=== PATIENT | female | born 1960 | race African-American/Black ===

== ENCOUNTER 2017-08-04 09:59 | Emergency (ER) | payer SELFPAY ==
[2017-08-04] MEDS ORDERED: NORMAL SALINE 1000 ML 1,000 ML IV ONE (10:24)
--- NOTE | 2017-08-04 10:24 | ER Document Report ---
ED Medical Screen (RME) - General Chief Complaint: Headache >24 hrs old Stated Complaint: HEADACHE Time Seen by Provider: 08/04/17 10:20 Notes: Patient is a 56-year-old female presenting to the emergency department today complaining of a global headache onset 1 month ago. Patient states that her headache has worsened today stating that she cannot take it anymore further stating she feels like her head is about to explode. Patient also complains of blurry vision and left foot pain. Patient denies any recent fall or injury. Patient is not on any blood thinners. TRAVEL OUTSIDE OF THE [place] IN LAST 30 DAYS: No - Related Data Allergies/Adverse Reactions: Penicillins Allergy (Verified 08/04/17 10:00) Past Medical History - General Information source: Patient - Social History Chew tobacco use (# tins/day): No Frequency of alcohol use: None Drug Abuse: None Family history: Reviewed & Not Pertinent - Past Medical History Cardiac Medical History: Reports: Hx Hypertension - diet controlled Pulmonary Medical History: Reports: Hx Bronchitis Endocrine Medical History: Reports: Hx Diabetes Mellitus Type 2 - borderline Musculoskeltal Medical History: Reports Hx Musculoskeletal Deformity Past Surgical History: Reports: Hx Section - X1, Hx Orthopedic Surgery - neck - Immunizations Immunizations up to date: No Hx Diphtheria, Pertussis, Tetanus Vaccination: No - unk Physical Exam - Vital signs Vitals: Temp Pulse Resp BP Pulse Ox 100.6 F H 106 H 16 156/81 H 95 08/04/17 10:03 08/04/17 10:03 08/04/17 10:08/04/17 10:03 08/04/17 10:03 - Notes Notes: GENERAL: Alert, interacts well. No acute distress. HEAD: Normocephalic, atraumatic. EYES: Pupils equal, round, and reactive to light. Extraocular movements intact. NECK: Full range of motion. Supple. Trachea midline. EXTREMITIES: Moves all 4 extremities spontaneously. Chronic discoloration on the top of the left foot which is also tender to palpation. NEUROLOGICAL: Alert and oriented x3. Normal speech. PSYCH: Normal affect, normal mood. Course - Vital Signs Vital signs: Temp Pulse Resp BP Pulse Ox 100.6 F H 106 H 16 156/81 H 95 08/04/17 10:03 08/04/17 10:03 08/04/17 10:03 08/04/17 10:03 08/04/17 10:03 - Laboratory Result Diagrams: 08/04/17 10:45 08/04/17 10:45 Laboratory results interpreted by me: 08/04/17 08/04/17 10:45 10:45 RDW 14.8 H Glucose 133 H Doctor's Discharge - Discharge Referrals: SUSANA RIVERA MD [Primary Care Provider] - Follow up as needed Scribe Documentation - Scribe Written by Sandro:: Sandro Richey, 08/04/2017 10:30 acting as scribe for :: Elijah
[2017-08-04] MEDS ORDERED: PROCHLORPERAZINE EDISYLATE INJ 10 MG/2 ML VIAL IV ONE (10:27)
[2017-08-04] MEDS ORDERED: DIPHENHYDRAMINE HCL 50 MG/ML VIAL IV ONE (10:28)
--- NOTE | 2017-08-04 11:17 | RADIOLOGY REPORT (SQ) ---
EXAM DESCRIPTION: CT HEAD WITHOUT COMPLETED DATE/TIME: 08/04/2017 11:06 am REASON FOR STUDY: global headache one month COMPARISON: 08/15/2014, 08/08/2012 CT brain TECHNIQUE: Axial images acquired through the brain without intravenous contrast. Images reviewed wi th bone, brain and subdural windows. Images stored on PACS. All CT scanners at this facility use dose modulation, iterative reconstruction, and/or weight based d osing when appropriate to reduce radiation dose to as low as reasonably achievable (ALARA). [facility]: Dose Right [facility]: CareDose [facility]: Dose Right [facility]: Teradose 4D [facility]: Smart [employer] RADIATION DOSE: CT Rad equipment meets quality standard of care and radiation dose reduction techniq ues were employed. CTDIvol: 64.6 mGy. DLP: 1034 mGy-cm. mGy. LIMITATIONS: None. FINDINGS: VENTRICLES: Normal size and contour. CEREBRUM: No masses. No hemorrhage. No midline shift. No evidence for acute infarction. Normal gra y/white matter differentiation. No areas of low density in the white matter. CEREBELLUM: No masses. No hemorrhage. No alteration of density. No evidence for acute infarction. EXTRAAXIAL SPACES: No fluid collections. No masses. ORBITS AND GLOBE: No intra- or extraconal masses. Normal contour of globe without masses. CALVARIUM: No fracture. PARANASAL SINUSES: No fluid or mucosal thickening. SOFT TISSUES: No mass or hematoma. OTHER: No other significant finding. IMPRESSION: NORMAL BRAIN CT WITHOUT CONTRAST. EVIDENCE OF ACUTE STROKE: NO. COMMENT: Quality ID # [id number]: Final reports with documentation of one or more dose reduction techniques (e.g., Automated exposure control, adjustment of the mA and/or kV according to patient size, use of iterative reconstruction technique) TECHNICAL DOCUMENTATION: JOB ID: [id number] [employer]- All Rights Reserved
[2017-08-04 11:19] LABS: ABSOLUTE LYMPHOCYTES (AUTO) 1.1 10^3/uL (0.5-4.7); ABSOLUTE MONOCYTES (AUTO) 0.6 10^3/uL (0.1-1.4); ABSOLUTE NEUT (AUTO) 6.1 10^3/uL (1.7-8.2); BASOPHILS % (AUTO) 0.3 % (0-2); EOSINOPHILS % (AUTO) 0.4 % (0-6); HEMATOCRIT 40.2 % (36.0-47.0); HEMOGLOBIN 13.6 g/dL (12.0-15.5); LYMPHOCYTES % (AUTO) 13.6 % (13-45); MEAN CORPUSCULAR HEMOGLOBIN 28.3 pg (27.0-33.4); MEAN CORPUSCULAR HGB CONC 33.8 g/dL (32.0-36.0); MEAN CORPUSCULAR VOLUME 84 fl (80-97); MONOCYTES % (AUTO) 7.8 % (3-13); PLATELET COUNT 284 10^3/uL (150-450); RED CELL DISTRIBUTION WIDTH 14.8 % (11.5-14.0); SEGMENTED NEUTROPHILS % (AUTO) 77.9 % (42-78); TOTAL CELLS COUNTED % (AUTO) 100 %; WHITE BLOOD COUNT 7.8 10^3/uL (4.0-10.5)
[2017-08-04 11:25] LABS: BLOOD UREA NITROGEN 9 mg/dL (7-20); GLUCOSE 133 mg/dL (75-110)
--- NOTE | 2017-08-04 11:25 | RADIOLOGY REPORT (SQ) ---
EXAM DESCRIPTION: FOOT LEFT COMPLETE COMPLETED DATE/TIME: 08/04/2017 11:15 am REASON FOR STUDY: L foot TTP COMPARISON: None. NUMBER OF VIEWS: Three views. TECHNIQUE: AP, lateral and oblique without weight bearing radiographic images acquired of the left f oot. LIMITATIONS: None. FINDINGS: MINERALIZATION: Normal. BONES: No acute fracture or dislocation. No worrisome bone lesions. No significant osteophytes. JOINTS: No erosions. No brittny-articular osteopenia. No chondrocalcinosis. SOFT TISSUES: No swelling. No calcifications. OTHER: No other significant finding. IMPRESSION: NEGATIVE STUDY OF THE LEFT FOOT. . TECHNICAL DOCUMENTATION: JOB ID: [id number] [employer]- All Rights Reserved
[2017-08-04 11:26] LABS: ALANINE AMINOTRANSFERASE 24 U/L (9-52); ALBUMIN 4.5 g/dL (3.5-5.0); ALKALINE PHOSPHATASE 74 U/L (38-126); ANION GAP 11 (5-19); ASPARTATE AMINO TRANSFERASE 23 U/L (14-36); BILIRUBIN,DIRECT 0.1 mg/dL (0.0-0.4); BILIRUBIN,TOTAL 0.4 mg/dL (0.2-1.3); CARBON DIOXIDE 26 mmol/L (22-30); CHLORIDE 101 mmol/L (98-107); POTASSIUM 4.7 mmol/L (3.6-5.0); SODIUM 138.4 mmol/L (137-145); TOTAL PROTEIN 7.7 g/dL (6.3-8.2)
--- NOTE | 2017-08-04 12:08 | ER Document Report ---
ED General - General Chief Complaint: Headache >24 hrs old Stated Complaint: HEADACHE Time Seen by Provider: 08/04/17 10:20 Notes: Patient states that she has had a headache for 1 month. Came here for evaluation. Was seen at triage initially. Low-grade fever. Was given IV migraine treatment medications and sent to CT scan. Patient extremely somnolent. Complaining of headache and no other symptoms at this time peer TRAVEL OUTSIDE OF THE [place] IN LAST 30 DAYS: No - HPI Onset/Duration: Gradual, Constant Severity: Moderate Pain Level: 2 - Related Data Allergies/Adverse Reactions: Penicillins Allergy (Verified 08/04/17 10:00) Past Medical History - General Information source: Patient - Social History Smoking Status: Current Some Day Smoker Cigarette use (# per day): Yes Chew tobacco use (# tins/day): No Frequency of alcohol use: None Drug Abuse: None Lives with: Family Family History: Arthritis, CAD, DM, Hyperlipidemia, Hypertension, Malignancy Patient has suicidal ideation: No Patient has homicidal ideation: No - Past Medical History Cardiac Medical History: Reports: Hx Hypertension - diet controlled Pulmonary Medical History: Reports: Hx Bronchitis Endocrine Medical History: Reports: Hx Diabetes Mellitus Type 2 - borderline Renal/ Medical History: Denies: Hx Peritoneal Dialysis Musculoskeltal Medical History: Reports Hx Musculoskeletal Deformity Past Surgical History: Reports: Hx Section - X1, Hx Orthopedic Surgery - neck - Immunizations Immunizations up to date: No Hx Diphtheria, Pertussis, Tetanus Vaccination: No - unk Review of Systems - Review of Systems Constitutional: Chills, Fever, Weakness EENT: Blurred vision. denies: Double vision, Throat pain, Difficulty swallowing , Throat swelling Cardiovascular: denies: Chest pain, Palpitations, Heart racing Respiratory: denies: Cough, Hurts to breathe, Short of breath Gastrointestinal: denies: Abdominal pain, Diarrhea, Nausea Genitourinary: denies: Dysuria, Discharge, Urgency Musculoskeletal: denies: Back pain, Joint pain, Muscle pain, Muscle stiffness, Neck pain Skin: denies: Lesions, Lumps, Rash Hematologic/Lymphatic: denies: Anemia, Blood clots, Easy bleeding, Easy bruising Neurological/Psychological: Weakness, Headaches. denies: Paralysis, Seizure, Lost consciousness Physical Exam - Vital signs Vitals: Temp Pulse Resp BP Pulse Ox 100.6 F H 106 H 16 156/81 H 95 02/20/18 10:03 08/04/17 10:03 08/04/17 10:03 08/04/17 10:03 08/04/17 10:03 Interpretation: Tachycardic - General General appearance: Appears well, Lethargic In distress: None - HEENT Head: Normocephalic, Atraumatic Eyes: Normal Pupils: PERRL Neck: Normal. No: Brudzinski, Lymphadenopathy, Meningismus, Neck mass - Respiratory Respiratory status: No respiratory distress Chest status: Nontender Breath sounds: Normal Chest palpation: Normal - Cardiovascular Rhythm: Tachycardia Heart sounds: Normal auscultation Murmur: No - Abdominal Inspection: Normal Distension: No distension Bowel sounds: Normal Tenderness: Nontender Organomegaly: No organomegaly - Back Back: Normal, Nontender - Extremities General upper extremity: Normal inspection, Nontender, Normal color, Normal ROM , Normal temperature General lower extremity: Normal inspection, Nontender, Normal color, Normal ROM , Normal temperature, Normal weight bearing. No: Brook's sign - Neurological Neuro grossly intact: Yes Cognition: Normal Orientation: AAOx4 Abdirahman Coma Scale Eye Opening: Spontaneous Abdirahman Coma Scale Verbal: Oriented [place] Coma Scale Motor: Obeys Commands Abdirahman Coma Scale Total: 15 Speech: Normal Motor strength normal: LUE, RUE, LLE, RLE Sensory: Normal - Psychological Associated symptoms: Normal affect, Normal mood - Skin Skin Temperature: Warm Skin Moisture: Dry Skin Color: Normal Course - Re-evaluation Re-evalutation: 08/04/17 12:07 Unknown what patient's baseline exam is that she is quite sleepy now after receiving Compazine and Benadryl IV. Concern is that she had a fever and with altered mental status may need LP to rule out encephalitis or meningitis. Will order the coagulation studies as well as influenza test at this time. Will reassess. 08/04/17 13:16 Laboratory 08/04/17 08/04/17 08/04/17 10:45 10:45 11:46 WBC 7.8 RBC 4.80 Hgb 13.6 Hct 40.2 MCV 84 MCH 28.3 MCHC 33.8 RDW 14.8 H Plt Count 284 Seg Neutrophils % 77.9 Lymphocytes % 13.6 Monocytes % 7.8 Eosinophils % 0.4 Basophils % 0.3 Absolute Neutrophils 6.1 Absolute Lymphocytes 1.1 Absolute Monocytes 0.6 Absolute Eosinophils 0.0 Absolute Basophils 0.0 PT 13.5 INR 0.97 Sodium 138.4 Potassium 4.7 Chloride 101 Carbon Dioxide 26 Anion Gap 11 BUN 9 Creatinine 0.72 Est GFR ( Amer) > 60 Est GFR (Non-Af Amer) > 60 Glucose 133 H Lactic Acid Calcium 10.0 Total Bilirubin 0.4 Direct Bilirubin 0.1 Neonat Total Bilirubin Not Reportable Neonat Direct Bilirubin Not Reportable Neonat Indirect Bili Not Reportable AST 23 ALT 24 Alkaline Phosphatase 74 Total Protein 7.7 Albumin 4.5 08/04/17 11:46 WBC RBC Hgb Hct MCV MCH MCHC RDW Plt Count Seg Neutrophils % Lymphocytes % Monocytes % Eosinophils % Basophils % Absolute Neutrophils Absolute Lymphocytes Absolute Monocytes Absolute Eosinophils Absolute Basophils PT INR Sodium Potassium Chloride Carbon Dioxide Anion Gap BUN Creatinine Est GFR ( Amer) Est GFR (Non-Af Amer) Glucose Lactic Acid 1.4 Calcium Total Bilirubin Direct Bilirubin Neonat Total Bilirubin Neonat Direct Bilirubin Neonat Indirect Bili AST ALT Alkaline Phosphatase Total Protein Albumin Head CT 08/04/17 10:27 IMPRESSION: NORMAL BRAIN CT WITHOUT CONTRAST. EVIDENCE OF ACUTE STROKE: NO. Foot X-Ray 08/04/17 10:31 IMPRESSION: NEGATIVE STUDY OF THE LEFT FOOT. . Patient with altered mental status and low-grade fever. Still pending influenza. Would hate to do a spinal tap on patient if she had the flu however also related to miss meningitis or encephalitis. Flu swab was negative will proceed with spinal tap. I have informed the nurse that there has been delay in obtaining the flu swab and that this needs to be done immediately. Nurse is aware. Will attempt to collect at this time. 08/04/17 13:52 Patient is much more alert now at this time. Migraine treatment is worn off. Patient states that she has a cough. The cough makes her headache worse. Will add chest x-ray at this time. Patient does consent for LP. If testing is as mentioned above will proceed as mentioned above. 08/04/17 15:13 Lumbar puncture performed. Fluid was clear. Ordered Tylenol and Toradol. Patient temperature is increased to 102. Chest x-ray was unremarkable. 08/04/17 16:21 Likely this represents a viral syndrome. Labs are fairly unremarkable. Does have a mild headache fever. If LP results unremarkable will continue to treat patient with ibuprofen and Tylenol. 08/04/17 16:47 Patient's CSF analysis is unremarkable for acute infection. Likely this is a viral syndrome. Patient does have a fever and a cough. Starting on antibiotics. Symptoms have been present for off and on for 7 days. Patient feeling more comfortable at this time. Will start on Tamiflu and azithromycin at this time. 08/04/17 16:53 - Vital Signs Vital signs: Temp Pulse Resp BP Pulse Ox 102.9 F H 107 H 20 154/75 H 96 08/04/17 15:18 08/04/17 15:25 08/04/17 15:25 08/04/17 15:25 08/04/17 15:25 - Laboratory Result Diagrams: 08/04/17 10:45 08/04/17 10:45 Laboratory results interpreted by me: 08/04/17 08/04/17 08/04/17 10:45 10:45 14:58 RDW 14.8 H Glucose 133 H CSF Glucose 79 H Procedures - Lumbar Puncture Lumbar puncture Time completed: 15:08 Consent obtained: Yes Lumbar puncture pre-procedure: Sterile PPE donned, Betadine prep applied Patient position: Sitting Needle size: 22 Lumbar puncture location: l3 Anesthetic type: 1% Lidocaine mL's of anesthetic: 5 Amount/type of drainage: 12 ml clear drainage Number of attempts: 1 Complications: No Notes: 08/04/17 15:09 Opening pressure of 31 but sitting up Discharge - Discharge Clinical Impression: Viral syndrome Condition: Good Disposition: HOME, SELF-CARE Instructions: Acetaminophen, Fever ([facility]), Viral Syndrome ([facility]) Additional Instructions: If your symptoms get worse, headache gets worse, fever gets worse or any other symptoms gets worse please return immediately. I am starting you on a antibiotic as well as anti-flu medication at this time. There are known side effects with all medications. Take Tylenol or ibuprofen every 8 hours as needed for fever and pain. Please return to the emergency department or follow- up with your primary care doctor if symptoms are getting worse per Prescriptions: Azithromycin 250 mg PO DAILY 6 Days #6 tablet Ibuprofen [Motrin 800 mg Tablet] 800 mg PO Q8H PRN 10 Days #30 tab PRN Reason: Oseltamivir Phosphate [Tamiflu 75 mg Capsule] 75 mg PO NOW 5 Days #10 capsule Referrals: SUSANA RIVERA MD [Primary Care Provider] - 08/06/17
[2017-08-04 12:10] LABS: INTERNATIONAL RATION (INR) 0.97; PROTHROMBIN TIME 13.5 SEC (11.4-15.4)
[2017-08-04 13:48] LABS: A TYPE INFLUENZA AG NEGATIVE (NEGATIVE); B INFLUENZA AG NEGATIVE (NEGATIVE)
--- NOTE | 2017-08-04 14:15 | RADIOLOGY REPORT (SQ) ---
EXAM DESCRIPTION: CHEST PA/LAT COMPLETED DATE/TIME: 08/04/2017 2:07 pm REASON FOR STUDY: Cough, fever COMPARISON: Two-view chest 12/04/2015, 08/15/2014 EXAM PARAMETERS: NUMBER OF VIEWS: two views TECHNIQUE: Digital Frontal and Lateral radiographic views of the chest acquired. RADIATION DOSE: NA LIMITATIONS: none FINDINGS: LUNGS AND PLEURA: No opacities, masses or pneumothorax. No pleural effusion. MEDIASTINUM AND HILAR STRUCTURES: No masses or contour abnormalities. HEART AND VASCULAR STRUCTURES: Heart normal size. No evidence for failure. BONES: No acute findings. HARDWARE: None in the chest. OTHER: No other significant finding. IMPRESSION: NO SIGNIFICANT RADIOGRAPHIC FINDING IN THE CHEST. TECHNICAL DOCUMENTATION: JOB ID: [id number] [employer]- All Rights Reserved
[2017-08-04] MEDS ORDERED: LIDOCAINE 1% INJ-PF (10 MG/ML) 30 ML SDV INJ ONE (14:21)
[2017-08-04] MEDS ORDERED: ACETAMINOPHEN 325 MG TABLET PO ONE (15:04)
[2017-08-04] MEDS ORDERED: KETOROLAC TROMETHAMINE INJ/PF 30 MG/1 ML SDV IV ONE (15:04)
[2017-08-04 15:57] LABS: GLUCOSE,CSF 79 mg/dL (40-70); PROTEIN,CSF 29 mg/dL (12-60)
[2017-08-04 16:21] LABS: APPEARANCE ALL TUBES CLEAR; APPEARANCE TUBE 1 CLEAR; APPEARANCE TUBE 2 CLEAR; APPEARANCE TUBE 3 CLEAR; APPEARANCE TUBE 4 CLEAR; COLOR ALL TUBES COLORLESS; COLOR TUBE 1 COLORLESS; COLOR TUBE 2 COLORLESS; COLOR TUBE 3 COLORLESS; COLOR TUBE 4 COLORLESS; CSF TUBE NUMBER 1; VOLUME TUBE 1 1.5 CC
[2017-08-04 16:22] LABS: RED BLOOD CELL,CSF 5 /uL (0-10); VOLUME TUBE 2 1.5 CC
[2017-08-04 16:23] LABS: WHITE BLOOD CELL,CSF 3 /uL (0-5)
[2017-08-04 16:25] LABS: APPEARANCE ALL TUBES CLEAR; APPEARANCE TUBE 1 CLEAR; APPEARANCE TUBE 2 CLEAR; APPEARANCE TUBE 3 CLEAR; APPEARANCE TUBE 4 CLEAR; COLOR ALL TUBES COLORLESS; COLOR TUBE 1 COLORLESS; COLOR TUBE 2 COLORLESS; COLOR TUBE 3 COLORLESS; COLOR TUBE 4 COLORLESS; CSF TUBE NUMBER 4; VOLUME TUBE 1 1.5 CC; VOLUME TUBE 2 1.5 CC
[2017-08-04 16:26] LABS: RED BLOOD CELL,CSF 1 /uL (0-10); WHITE BLOOD CELL,CSF 1 /uL (0-5)
[2017-08-04] MEDS ORDERED: AZITHROMYCIN 250 MG TABLET PO ONE (16:47)
[2017-08-04] MEDS ORDERED: OSELTAMIVIR PHOSPHATE 75 MG CAPSULE PO ONE (16:53)
[2017-08-04 17:25] VITALS: BP 116/53
[2017-08-06 21:07] LABS: HSV I DNA Negative (Negative)
[2017-08-07 07:18] LABS: HSV II DNA Negative (Negative)
== END 2017-08-04 17:25 | disposition home or self-care (01) ==
LOC: ER 09:59
PROC: 009U3ZX Drainage of Spinal Canal, Percutaneous Approach, Diagnostic (ICD-10-PCS; principal; 2017-08-04)
DX: B34.9 Viral infection, unspecified (principal); R51 Headache; R50.9 Fever, unspecified; F17.210 Nicotine dependence, cigarettes, uncomplicated
CPT/HCPCS: 99284; 96361; 96374; 96375; 87529; 36415; 87040; 87070; 87205; 85025; 85610; 89050; 82945; 84157; 80053; 83605; 87804; 71046; 73630; 70450; 62270; J1200; J3490 ×2; J1885; J0780; J7030

== ENCOUNTER 2018-04-02 12:36 | Emergency (ER) | payer SELFPAY ==
--- NOTE | 2018-04-02 13:04 | ER Document Report ---
ED Medical Screen (RME) - General Chief Complaint: Headache >24 hrs old Stated Complaint: HEADACHE Time Seen by Provider: 04/02/18 13:02 Notes: 57 years old female presents today with right temporal headache associated with redness and pain in the right eye as well as blurring of vision. This is going on for the last 2 weeks. Has a history of high blood pressure but not been taking any medications. Denies any fever chills or other constitutional symptoms. Denies any focal weaknesses. Right parietotemporal region is extremely tender on palpation, right eye shows conjunctival erythema. Right eye vision is blurry. Extraocular muscles could not perform because any movement of the eye causing severe pain. TRAVEL OUTSIDE OF THE [place] IN LAST 30 DAYS: No - Related Data Allergies/Adverse Reactions: Penicillins Allergy (Verified 04/02/18 12:37) Past Medical History - Social History Family history: Reviewed & Not Pertinent - Past Medical History Cardiac Medical History: Reports: Hx Hypertension - diet controlled Pulmonary Medical History: Reports: Hx Bronchitis Endocrine Medical History: Reports: Hx Diabetes Mellitus Type 2 - borderline Renal/ Medical History: Denies: Hx Peritoneal Dialysis Musculoskeltal Medical History: Reports Hx Musculoskeletal Deformity Past Surgical History: Reports: Hx Section - X1, Hx Orthopedic Surgery - neck - Immunizations Immunizations up to date: No Hx Diphtheria, Pertussis, Tetanus Vaccination: No - unk Physical Exam - Vital signs Vitals: Temp Pulse Resp BP Pulse Ox 98.5 F 93 18 168/92 H 98 04/02/18 12:42 04/02/18 12:42 04/02/18 12:42 04/02/18 12:42 04/02/18 12:42 Course - Vital Signs Vital signs: Temp Pulse Resp BP Pulse Ox 98.5 F 93 18 168/92 H 98 04/02/18 12:42 04/02/18 12:42 04/02/18 12:42 04/02/18 12:42 04/02/18 12:42 Doctor's Discharge - Discharge Referrals: SUSANA RIVERA MD [Primary Care Provider] - Follow up as needed
[2018-04-02 13:24] LABS: ABSOLUTE BASOPHILS # (AUTO) 0.1 10^3/uL (0.0-0.2); ABSOLUTE EOSINOPHILS # (AUTO) 0.1 10^3/uL (0.0-0.6); ABSOLUTE LYMPHOCYTES (AUTO) 2.9 10^3/uL (0.5-4.7); ABSOLUTE MONOCYTES (AUTO) 0.4 10^3/uL (0.1-1.4); ABSOLUTE NEUT (AUTO) 4.8 10^3/uL (1.7-8.2); EOSINOPHILS % (AUTO) 0.9 % (0-6); HEMATOCRIT 38.9 % (36.0-47.0); HEMOGLOBIN 12.9 g/dL (12.0-15.5); LYMPHOCYTES % (AUTO) 35.6 % (13-45); MEAN CORPUSCULAR HEMOGLOBIN 27.8 pg (27.0-33.4); MEAN CORPUSCULAR HGB CONC 33.1 g/dL (32.0-36.0); MEAN CORPUSCULAR VOLUME 84 fl (80-97); MONOCYTES % (AUTO) 4.3 % (3-13); PLATELET COUNT 306 10^3/uL (150-450); RED BLOOD COUNT 4.63 10^6/uL (3.72-5.28); RED CELL DISTRIBUTION WIDTH 14.4 % (11.5-14.0); SEGMENTED NEUTROPHILS % (AUTO) 58.2 % (42-78); TOTAL CELLS COUNTED % (AUTO) 100 %; WHITE BLOOD COUNT 8.3 10^3/uL (4.0-10.5)
--- NOTE | 2018-04-02 13:27 | ER Document Report ---
ED Headache - General Chief Complaint: Headache >24 hrs old Stated Complaint: HEADACHE Time Seen by Provider: 04/02/18 13:02 Mode of Arrival: Ambulatory Information source: Patient Notes: 57-year-old smoker bandar kuhn female that does not have a PCP is been complaining of her right sided forehead headache level 1/5 that is been persistent for 4 weeks. It started as normal headache but there was associated dizziness. It progressed to the right muslim and now it is been in the right eye with blurred vision for 1 week. She woke up this morning and noticed that her right lid was sagging down too far, there was some mucus in her eye, and she felt like there was sand in her eye. That sensation is now gone. Headache is worse at night, when she does wake up in the middle the night she has a persistent headache, 4/5 now. She has had numbness of both of her legs and her right arm for over 6 months she does not think is related to this I. Past medical history of untreated hypertension, borderline diabetes, neck surgery for fractured disc, sarcoidosis. She has seen Dr. Little but she states she no longer has health insurance. No history of migraines. No history of glaucoma. no Chest pain or shortness of breath. No abdominal pain. No recent upper respiratory infection or sinus pain. TRAVEL OUTSIDE OF THE [place] IN LAST 30 DAYS: No - Related Data Allergies/Adverse Reactions: Penicillins Allergy (Verified 04/02/18 12:37) Past Medical History - General Information source: Patient - Social History Smoking Status: Current Every Day Smoker Family History: Arthritis, CAD, DM, Hyperlipidemia, Hypertension, Malignancy Patient has suicidal ideation: No Patient has homicidal ideation: No - Past Medical History Cardiac Medical History: Reports: Hx Hypertension - diet controlled Pulmonary Medical History: Reports: Hx Bronchitis Endocrine Medical History: Reports: Hx Diabetes Mellitus Type 2 - borderline Musculoskeletal Medical History: Reports Hx Musculoskeletal Deformity Past Surgical History: Reports: Hx Section - X1, Hx Orthopedic Surgery - neck - Immunizations Immunizations up to date: No Hx Diphtheria, Pertussis, Tetanus Vaccination: No - unk Review of Systems - Review of Systems Constitutional: No symptoms reported EENT: See HPI Cardiovascular: No symptoms reported Respiratory: No symptoms reported Gastrointestinal: No symptoms reported Genitourinary: No symptoms reported Female Genitourinary: No symptoms reported Musculoskeletal: No symptoms reported Skin: No symptoms reported Hematologic/Lymphatic: No symptoms reported Neurological/Psychological: See HPI Physical Exam - Vital signs Vitals: Temp Pulse Resp BP Pulse Ox 98.5 F 93 18 168/92 H 98 04/02/18 12:42 04/02/18 12:42 04/02/18 12:42 04/02/18 12:42 04/02/18 12:42 Interpretation: Hypertensive - General General appearance: Appears well, Alert Notes: Obese - HEENT Head: Normocephalic, Atraumatic Eyes: Normal Conjunctiva: Injected - Right, Other - no fb with eyelid flipped. No: Purulent discharge Cornea: Normal Extraocular movements intact: Yes - Intact Eyelashes: Other - upper right lid has some edema, not hot, but tender Pupils: PERRL Mucous membranes: Normal Neck: Supple - Respiratory Respiratory status: No respiratory distress Chest status: Nontender Breath sounds: Normal Chest palpation: Normal - Cardiovascular Rhythm: Regular Heart sounds: Normal auscultation Murmur: No - Abdominal Inspection: Normal Distension: No distension Bowel sounds: Normal Tenderness: Nontender Organomegaly: No organomegaly - Back Back: Normal, Nontender - Extremities General upper extremity: Normal inspection, Nontender, Normal color, Normal ROM , Normal temperature General lower extremity: Normal inspection, Nontender, Normal color, Normal ROM , Normal temperature, Normal weight bearing. No: Brook's sign - Neurological Neuro grossly intact: Yes Cognition: Normal Orientation: AAOx4 Peck Coma Scale Eye Opening: Spontaneous Abdirahman Coma Scale Verbal: Oriented Abdirahman Coma Scale Motor: Obeys Commands Abdirahman Coma Scale Total: 15 Speech: Normal Motor strength normal: LUE, RUE, LLE, RLE Sensory: Normal - Psychological Associated symptoms: Normal affect, Normal mood - Skin Skin Temperature: Warm Skin Moisture: Dry Skin Color: Normal Course - Re-evaluation Re-evalutation: 04/02/18 15:39 CT head without is negative per rad. nurses unable to get IV for the contrasted CT orbits 04/02/18 15:42 04/02/18 16:36 meds are reducing the headache. 04/02/18 16:[address] of the orbit shows proptosis of the right globe, no signs of orbital mass or soft tissue inflammation normal abnormal thickening or asymmetry of the extraocular muscles. No bony or normalities no other significant findings. I added a TSH to the patient's lab work that is already been done. The IOP of the right eye is elevated at 26.2, IOP of the left eye is 20.6 no fluorescein uptake. visual acuity is 20/30 right, 20/30 left. Headache down to 1/5 after the medication. 04/02/18 17:[address] londono- to consult opthamologist telephone messenger since we do not have one telephone messenger for [facility]. ESR 34 (mildly elevated) 04/02/18 17:39 called [facility] opthamology for consult. 04/02/18 17:[address] astrid stauffer opthamology [facility] asked to get MRI to rule out cavernous sinus thrombosis and carotid cavernous fistula, MRV/MRA brain per dr. palmer- which she says needs special sequencing., will call MRI, they are calling her back. 04/02/18 18:00 Dr. Palmer states that she is not sure of the MRV and MRI that we do here has the right image sequencing done to rule out those 2 diagnoses. I called [facility] radiology 04/02/18 18:35 Spoke with [facility] radiologist will call me back in 5 minutes he is to speak with the MRI techs to see if they have the image sequencing in order to find these 2 diagnoses. 04/02/18 18:41 dr salgado the radiologist called neuro superintendent division who states that to look for carotid cavernous fistula she would need angiography which dr. levy could do. The MRA/MRV would be the same at [facility] and [facility]. I am calling for hospitalist to admit with opthamology and nuero superintendent division consultation. 04/02/18 18:46 Patient's headache is coming back and she is hungry but I want to keep her n.p.o. in case there is intervention to be done I will order lactated Ringer's at 115-hour. 04/02/18 18:[address] moore is accepting the pt. to [facility] medical floor for dr. Hackett with opthamology and neurointerventionist consult. The pt is agreeable for transfer. They have beds available. 04/02/18 19:02 dr stauffer is OK with the pt getting the MRV/MRA at [facility] not [facility] and will consult on the pt. Care transferred to [place] MARIA at the bedside. 04/02/18 19:20 dr. moore called back and wants heparin bolus 7300 units, and 16.4 ml per hour of (25,000 units of heparin in 250 ml 1/2 ns) EMTALA has been completed. - Vital Signs Vital signs: Temp Pulse Resp BP Pulse Ox 98 F 79 16 149/91 H 97 04/02/18 19:00 04/02/18 19:00 04/02/18 19:00 04/02/18 19:00 04/02/18 19:00 - Laboratory Result Diagrams: 04/02/18 13:13 04/02/18 13:13 Laboratory results interpreted by me: 04/02/18 04/02/18 13:13 13:13 RDW 14.4 H ESR 34 H Glucose 178 H Discharge - Discharge Clinical Impression: Redness of right eye, elevated eye pressure right eye, right temporal headache , Elevated glucose Hypertension Qualifiers: Hypertension type: unspecified Qualified Code(s): I10 - Essential (primary) hypertension Disposition: [facility] Referrals: SUSANA RIVERA MD [Primary Care Provider] - Follow up as needed
[2018-04-02 13:59] LABS: CALCIUM 9.4 mg/dL (8.4-10.2); GLUCOSE 178 mg/dL (75-110)
[2018-04-02 14:00] LABS: ALANINE AMINOTRANSFERASE 33 U/L (9-52); ALKALINE PHOSPHATASE 86 U/L (38-126); ANION GAP 9 (5-19); ASPARTATE AMINO TRANSFERASE 23 U/L (14-36); BILIRUBIN,DIRECT 0.3 mg/dL (0.0-0.4); BILIRUBIN,TOTAL 0.5 mg/dL (0.2-1.3); BLOOD UREA NITROGEN 9 mg/dL (7-20); CARBON DIOXIDE 27 mmol/L (22-30); CHLORIDE 104 mmol/L (98-107); POTASSIUM 4.5 mmol/L (3.6-5.0); SODIUM 139.9 mmol/L (137-145); TOTAL PROTEIN 7.8 g/dL (6.3-8.2)
[2018-04-02 14:03] LABS: ERYTHROCYTE SEDIMENTATION RATE 34 mm/hr (0-30)
--- NOTE | 2018-04-02 14:45 | RADIOLOGY REPORT (SQ) ---
EXAM DESCRIPTION: CT HEAD WITHOUT COMPLETED DATE/TIME: 04/02/2018 2:31 pm REASON FOR STUDY: Headache/blurred vision on the right eye COMPARISON: 08/04/2017. TECHNIQUE: Axial images acquired through the brain without intravenous contrast. Images reviewed wi th bone, brain and subdural windows. Additional sagittal and coronal reconstructions were generated. Images stored on PACS. All CT scanners at this facility use dose modulation, iterative reconstruction, and/or weight based d osing when appropriate to reduce radiation dose to as low as reasonably achievable (ALARA). [facility]: Dose Right [facility]: CareDose [facility]: Dose Right [facility]: Teradose 4D [facility]: OraMetrix RADIATION DOSE: CT Rad equipment meets quality standard of care and radiation dose reduction techniq ues were employed. CTDIvol: 53.2 mGy. DLP: 1017 mGy-cm. mGy. LIMITATIONS: None. FINDINGS: VENTRICLES: Normal size and contour. CEREBRUM: No masses. No hemorrhage. No midline shift. No evidence for acute infarction. Normal gra y/white matter differentiation. No areas of low density in the white matter. CEREBELLUM: No masses. No hemorrhage. No alteration of density. No evidence for acute infarction. EXTRAAXIAL SPACES: No fluid collections. No masses. ORBITS AND GLOBE: No intra- or extraconal masses. Normal contour of globe without masses. CALVARIUM: No fracture. PARANASAL SINUSES: No fluid or mucosal thickening. SOFT TISSUES: No mass or hematoma. OTHER: No other significant finding. IMPRESSION: NORMAL BRAIN CT WITHOUT CONTRAST. EVIDENCE OF ACUTE STROKE: NO. COMMENT: Quality ID # [id number]: Final reports with documentation of one or more dose reduction techniques (e.g., Automated exposure control, adjustment of the mA and/or kV according to patient size, use of iterative reconstruction technique) TECHNICAL DOCUMENTATION: JOB ID: [id number] [employer] All Rights Reserved Reading location - IP/workstation name: [email or web address]
[2018-04-02] MEDS ORDERED: DIPHENHYDRAMINE HCL 50 MG/ML VIAL IV ONE (15:40)
[2018-04-02] MEDS ORDERED: METOCLOPRAMIDE HCL INJ/PF 10 MG/2 ML SDV IV ONE (15:40)
[2018-04-02] MEDS ORDERED: TETRACAINE HCL 0.5% OPH SOLN 0.6 ML DROPERETTE OD ONE (16:36)
[2018-04-02] MEDS ORDERED: TETRACAINE HCL 0.5% OPH SOLN 4 ML ONE (16:37)
--- NOTE | 2018-04-02 16:39 | RADIOLOGY REPORT (SQ) ---
EXAM DESCRIPTION: CT ORBIT/SELLA WITH COMPLETED DATE/TIME: 04/02/2018 4:20 pm REASON FOR STUDY: Headache/blurred vision on the right eye COMPARISON: None. TECHNIQUE: Post contrast images through the orbits windowed for bone and soft tissue. Additional co sd and sagittal reconstructed images reviewed. All images stored on PACS. All CT scanners at this facility use dose modulation, iterative reconstruction, and/or weight based d osing when appropriate to reduce radiation dose to as low as reasonably achievable (ALARA). [facility]: Dose Right [facility]: CareDose [facility]: Dose Right [facility]: Teradose 4D [facility]: Yasuu CONTRAST TYPE AND DOSE: contrast/concentration: Isovue 350.00 mg/ml; Total Contrast Delivered: 50.0 ml; Total Saline Delivered: 22.0 ml RENAL FUNCTION: BUN 9 creatinine 0.66. RADIATION DOSE: CT Rad equipment meets quality standard of care and radiation dose reduction techniq ues were employed. CTDIvol: 30.4 mGy. DLP: 357 mGy-cm. . LIMITATIONS: None. FINDINGS: FACIAL BONES: No fracture or bone lesion. ORBITS: Intact. No fracture. Symmetric intact globes and retroorbital soft tissues. There does deepa ear to be proptosis of the right globe. The orbital fat is clear with no abnormal density and no enh ancement. No abnormal thickening or asymmetry of the extraocular muscles. PARANASAL SINUSES: Clear. No significant mucosal thickening, mass or fluid. SOFT TISSUES: No mass or edema. No abnormal enhancement. No CT evidence of acute sinusitis. INFERIOR BRAIN: Limited view. No acute findings. OTHER: No other significant finding. IMPRESSION: SUSPECT PROPTOSIS OF THE RIGHT GLOBE. NO EVIDENCE OF ORBITAL MASS OR SOFT TISSUE INFLAM MATION. NO ABNORMAL THICKENING OR ASYMMETRY OF THE EXTRAOCULAR MUSCLES. NO BONY ABNORMALITIES. NO OTHER SIGNIFICANT FINDINGS. TECHNICAL DOCUMENTATION: JOB ID: [id number] Quality ID # [id number]: Final reports with documentation of one or more dose reduction techniques (e.g., Au tomated exposure control, adjustment of the mA and/or kV according to patient size, use of iterative reconstruction technique) 2010 [employer]- All Rights Reserved Reading location - IP/workstation name: [email or web address]
[2018-04-02] MEDS ORDERED: TETRACAINE HCL 0.5% OPH SOLN 4 ML OD ONE (16:46)
[2018-04-02] MEDS ORDERED: RINGERS SOLUTION,LACTATED 1,000 ML IV PRN (18:45)
[2018-04-02 19:04] VITALS: BP 149/91
[2018-04-02] MEDS ORDERED: HEPARIN SOD (PORCINE) 1,000 UNIT/ML 10 ML VIAL IV ONE (19:16)
[2018-04-02] MEDS ORDERED: HEPARIN SODIUM,PORCINE/D5W 250 ML IV PRN (19:16)
[2018-04-02] MEDS ORDERED: HEPARIN SODIUM,PORCINE/D5W 25,000 UNIT/250 ML RTUINJ IV PRN (19:19)
[2018-04-02 20:01] LABS: INTERNATIONAL RATION (INR) 0.98; PROTHROMBIN TIME 13.5 SEC (11.4-15.4)
[2018-04-02 20:02] LABS: PARTIAL THROMBOPLASTIN TIME 31.8 SEC (23.5-35.8)
== END 2018-04-03 01:31 | disposition short-term general hospital (02) ==
LOC: ER 12:36
DX: R51 Headache (principal); H40.051 Ocular hypertension, right eye; H02.841 Edema of right upper eyelid; H05.20 Unspecified exophthalmos; R42 Dizziness and giddiness; H57.89 Other specified disorders of eye and adnexa; H53.8 Other visual disturbances; R20.0 Anesthesia of skin; R73.9 Hyperglycemia, unspecified; I10 Essential (primary) hypertension; Z88.0 Allergy status to penicillin
CPT/HCPCS: 96376; 99285; 96361; 96375; 96365; 96366; 36415; 84443; 85025; 85652; 85610; 85730; 80053; 70450; 70481; J1644 ×2; J1200; J2765; J7120; J3490

== ENCOUNTER 2018-04-26 18:48 | Emergency (ER) | payer SELFPAY ==
[2018-04-26 20:31] LABS: ABSOLUTE BASOPHILS # (AUTO) 0.1 10^3/uL (0.0-0.2); ABSOLUTE EOSINOPHILS # (AUTO) 0.1 10^3/uL (0.0-0.6); ABSOLUTE LYMPHOCYTES (AUTO) 3.9 10^3/uL (0.5-4.7); ABSOLUTE MONOCYTES (AUTO) 0.5 10^3/uL (0.1-1.4); ABSOLUTE NEUT (AUTO) 5.6 10^3/uL (1.7-8.2); BASOPHILS % (AUTO) 0.6 % (0-2); EOSINOPHILS % (AUTO) 1.1 % (0-6); HEMATOCRIT 39.1 % (36.0-47.0); HEMOGLOBIN 13.3 g/dL (12.0-15.5); LYMPHOCYTES % (AUTO) 38.2 % (13-45); MEAN CORPUSCULAR HEMOGLOBIN 28.8 pg (27.0-33.4); MEAN CORPUSCULAR VOLUME 85 fl (80-97); MONOCYTES % (AUTO) 5.2 % (3-13); PLATELET COUNT 257 10^3/uL (150-450); RED BLOOD COUNT 4.62 10^6/uL (3.72-5.28); RED CELL DISTRIBUTION WIDTH 14.4 % (11.5-14.0); SEGMENTED NEUTROPHILS % (AUTO) 54.9 % (42-78); TOTAL CELLS COUNTED % (AUTO) 100 %; WHITE BLOOD COUNT 10.3 10^3/uL (4.0-10.5)
[2018-04-26 20:37] LABS: INTERNATIONAL RATION (INR) 2.18
[2018-04-26 20:42] LABS: PROTHROMBIN TIME 25.3 SEC (11.4-15.4)
[2018-04-26] MEDS ORDERED: MORPHINE SULFATE 10 MG/ML INJ IV ONE (20:42)
[2018-04-26] MEDS ORDERED: ONDANSETRON HCL INJ/PF 4 MG/2 ML SDV IV ONE (20:42)
[2018-04-26] MEDS ORDERED: NORMAL SALINE 500 ML IV ONE (20:42)
--- NOTE | 2018-04-26 20:42 | ER Document Report ---
ED General - General Chief Complaint: Abdominal Pain Stated Complaint: BACK/ABDOMINAL PAIN Time Seen by Provider: 04/26/18 19:49 Mode of Arrival: Ambulatory Information source: Patient, [facility] Records Notes: 57-year-old female with hypertension, diabetes, emphysema, recent diagnosis of clot behind the right eye presents with complaint of abdominal pain, right flank pain and hematuria that started today. Patient states that she awoke with generalized abdominal pain that she describes as cramping. She states that as the day progressed she began developing right flank pain that she describes as sharp, constant. Patient states that she noticed her urine to be darker today. She does describe some suprapubic pressure. Patient is concerned that she is bleeding internally since she was recently started on Xarelto for the clot. Patient denies any bright red blood per rectum. She does report dark stools over the last 3 days. She denies any history of kidney stones. She denies any fever, chills, nausea, vomiting, chest pain. TRAVEL OUTSIDE OF THE [place] IN LAST 30 DAYS: No - HPI Onset: This morning Onset/Duration: Gradual, Persistent Quality of pain: Cramping, Stabbing Severity: Moderate Associated symptoms: Other - Dizziness. denies: Chest pain, Headache, Nausea, Vomiting, Shortness of breath Exacerbated by: Denies Relieved by: Denies Similar symptoms previously: No Recently seen / treated by doctor: Yes - Related Data Allergies/Adverse Reactions: Penicillins Allergy (Verified 04/02/18 12:37) Past Medical History - General Information source: Patient, [facility] Records - Social History Smoking Status: Never Smoker Frequency of alcohol use: None Drug Abuse: None Lives with: Family Family History: Arthritis, CAD, DM, Hyperlipidemia, Hypertension, Malignancy Patient has suicidal ideation: No Patient has homicidal ideation: No - Past Medical History Cardiac Medical History: Reports: Hx Hypertension - diet controlled Pulmonary Medical History: Reports: Hx Bronchitis Endocrine Medical History: Reports: Hx Diabetes Mellitus Type 2 - borderline Renal/ Medical History: Denies: Hx Peritoneal Dialysis Musculoskeletal Medical History: Reports Hx Musculoskeletal Deformity Past Surgical History: Reports: Hx Section - X1, Hx Orthopedic Surgery - neck - Immunizations Immunizations up to date: No Hx Diphtheria, Pertussis, Tetanus Vaccination: No - unk Review of Systems - Review of Systems Notes: REVIEW OF SYSTEMS: CONSTITUTIONAL : Denies fever, chills, or sweats. Denies recent illness. Denies weight loss, recent hospitalizations. EENT: Denies visual changes, eye pain. Denies sore throat, oral lesions, difficulty swallowing. CARDIOVASCULAR: Denies chest pain. Denies palpitations. Denies lower extremity edema. RESPIRATORY: Denies cough. Denies shortness of breath, wheezing. GASTROINTESTINAL: Denies abdominal distention. Denies nausea, vomiting, or diarrhea. Denies blood in vomitus, stools, or per rectum. Denies tarry stools. Denies constipation. GENITOURINARY: Denies difficulty urinating, painful urination, frequency, or vaginal discharge. MUSCULOSKELETAL: Denies neck pain or stiffness. Denies joint pain or swelling. SKIN: Denies rash, lesions or sores. HEMATOLOGIC : Denies easy bruising or bleeding. LYMPHATIC: Denies swollen glands. NEUROLOGICAL: Denies confusion or altered mental status. Denies loss of consciousness. Denies lightheadedness. Denies headache. Denies weakness or paralysis. Denies problems difficulty with ambulation, slurred speech. Denies sensory loss, numbness, or tingling. Denies seizures. PSYCHIATRIC: Denies anxiety or stress. Denies depression, suicidal ideation, or homicidal ideation. Denies visual or auditory hallucinations. Physical Exam - Vital signs Vitals: Temp Pulse Resp BP Pulse Ox 98.6 F 87 16 158/86 H 98 04/26/18 19:04 04/26/18 19:04 04/26/18 19:04 04/26/18 19:04 04/26/18 19:04 - Notes Notes: PHYSICAL EXAMINATION: GENERAL: Well-appearing, well-nourished and in no acute distress. HEAD: Atraumatic, normocephalic. EYES: Pupils equal round and reactive to light, extraocular movements intact, conjunctiva are normal. ENT: Nares patent, oropharynx clear without exudates. Moist mucous membranes. NECK: Normal range of motion, supple without lymphadenopathy LUNGS: Breath sounds clear to auscultation bilaterally and equal. No wheezes rales or rhonchi. HEART: Regular rate and rhythm without murmurs ABDOMEN: mild generalized tenderness throughout. No guarding, no rebound. No masses appreciated. Right CVA tenderness. Female : Small external hemorrhoid. Stool brown. No active bleeding. Musculoskeletal: Normal range of motion, no pitting or edema. No cyanosis. NEUROLOGICAL: Cranial nerves grossly intact. Normal speech, normal gait. Normal sensory, motor exams PSYCH: Normal mood, normal affect. SKIN: Warm, Dry, normal turgor, no rashes or lesions noted. Course - Re-evaluation Re-evalutation: Laboratory 04/26/18 04/26/18 04/26/18 20:19 20:19 20:19 WBC 10.3 RBC 4.62 Hgb 13.3 Hct 39.1 MCV 85 MCH 28.8 MCHC 34.0 RDW 14.4 H Plt Count 257 Seg Neutrophils % 54.9 Lymphocytes % 38.2 Monocytes % 5.2 Eosinophils % 1.1 Basophils % 0.6 Absolute Neutrophils 5.6 Absolute Lymphocytes 3.9 Absolute Monocytes 0.5 Absolute Eosinophils 0.1 Absolute Basophils 0.1 PT 25.3 H INR 2.18 Sodium 142.7 Potassium 4.5 Chloride 101 Carbon Dioxide 29 Anion Gap 13 BUN 13 Creatinine 0.78 Est GFR ( Amer) > 60 Est GFR (Non-Af Amer) > 60 Glucose 109 Calcium 9.8 Total Bilirubin 0.3 Direct Bilirubin 0.3 Neonat Total Bilirubin Not Reportable Neonat Direct Bilirubin Not Reportable Neonat Indirect Bili Not Reportable AST 25 ALT 32 Alkaline Phosphatase 84 Total Protein 8.1 Albumin 4.4 Urine Color Urine Appearance Urine pH Ur Specific [place] Urine Protein Urine Glucose (UA) Urine Ketones Urine Blood Urine Nitrite Urine Bilirubin Urine Urobilinogen Ur Leukocyte Esterase Urine RBC (Auto) Squamous Epi Cells Auto Urine Mucus (Auto) Urine Yeast (Budding) Urine Ascorbic Acid Stool Occult Blood 04/26/18 04/26/18 20:26 20:44 WBC RBC Hgb Hct MCV MCH MCHC RDW Plt Count Seg Neutrophils % Lymphocytes % Monocytes % Eosinophils % Basophils % Absolute Neutrophils Absolute Lymphocytes Absolute Monocytes Absolute Eosinophils Absolute Basophils PT INR Sodium Potassium Chloride Carbon Dioxide Anion Gap BUN Creatinine Est GFR ( Amer) Est GFR (Non-Af Amer) Glucose Calcium Total Bilirubin Direct Bilirubin Neonat Total Bilirubin Neonat Direct Bilirubin Neonat Indirect Bili AST ALT Alkaline Phosphatase Total Protein Albumin Urine Color YELLOW Urine Appearance CLOUDY Urine pH 6.0 Ur Specific [place] 1.016 Urine Protein 100 H Urine Glucose (UA) NEGATIVE Urine Ketones NEGATIVE Urine Blood LARGE H Urine Nitrite NEGATIVE Urine Bilirubin NEGATIVE Urine Urobilinogen NEGATIVE Ur Leukocyte Esterase NEGATIVE Urine RBC (Auto) >182 Squamous Epi Cells Auto 2 Urine Mucus (Auto) FEW Urine Yeast (Budding) PRESENT Urine Ascorbic Acid NEGATIVE Stool Occult Blood NEGATIVE Abdomen/Pelvis CT 04/26/18 20:41 IMPRESSION: No definite acute intra-abdominal abnormality TECHNIQUE: Images stored on PACS. All CT scanners at this facility use dose modulation, iterative reconstruction, and/or weight based dosing when appropriate to reduce radiation dose to as low as reasonably achievable (ALARA). [facility]: Dose Right [facility]: CareDose [facility]: Dose Right [facility]: Teradose 4D [facility]: [employer] LIMITATIONS: None. FINDINGS: IMPRESSION: TECHNICAL DOCUMENTATION: Quality ID # 436: Final reports with documentation of one or more dose reduction techniques (e.g., Automated exposure control, adjustment of the mA and/or kV according to patient size, use of iterative reconstruction technique) 2010 [employer]- All Rights Reserved 57-year-old female presents with complaint of generalized abdominal pain, dizziness, right flank pain, nausea which all started this morning. Patient reports that she was recently admitted to [facility] where they found a clot behind her right eye. She states that she was started on Xarelto and discharged home. Patient is concerned that she is bleeding internally because of the Xarelto. She states that she is concerned that she has a blood in her urine. Vital signs reviewed upon arrival. Patient with low- grade temp of 100.6 which did increase to 102 but resolved prior to discharge. CBC, CMP are without leukocytosis or electrolyte abnormality. PT/INR within normal limits. Urinalysis shows a large amount of blood and greater than 182 WBCs but without evidence of infection. Upon review of prior urinalysis patient does have a history of hematuria but her RBCs are greater today than previous. Patient states that she was never informed that she had blood in her urine in the past. The increased and RBCs could be secondary to recent placement on Xarelto. Occult stool is negative for blood. CT of the abdomen and pelvis was obtained and without evidence of pancreatitis, cholecystitis, urolithiasis, appendicitis, bowel obstruction, perforation, abdominal aortic aneurysm. 04/26/18 22:45 Patient reevaluated and she does report improvement of her abdominal pain but is still complaining of vertiginous symptoms. Meclizine administered. 04/27/18 00:46 Patient reevaluated and she is sleeping peacefully. When awoke she states that she is feeling better. Her dizziness has resolved. She has had no episodes of vomiting during her ED course. It is possible that the patient's abdominal pain is viral and nature. No evidence of bacterial infection. I did explain to the patient that at this point although there is hematuria present and significant RBCs on microscopy that she should continue with the Xarelto at this time and contact the physician who is currently prescribing her the Xarelto. Patient was evaluated and treated as appropriate for the patient's presenting symptoms and complaint, with consideration of any critical or life threatening conditions that may be associated with their obtained history and exam as noted above. All results were discussed with patient. Patient provided the opportunity to ask questions, and express concerns. Patient was educated on treatments based on their presumed diagnosis as noted above. At this time we will discharge the patient with return precautions and follow-up recommendations. Verbal discharge instructions given a the bedside. Medication warnings reviewed. Patient is in agreement with this plan and has verbalized understanding of return precautions. After careful consideration I feel that that patient can be safely discharged from the emergency department, they were advised to followup with a primary care physician in 2-3 days. Dictation on this chart was performed using voice recognition software and may result in unintended grammatical, spelling, syntax or errors. 04/27/18 05:07 04/27/18 05:09 04/27/18 05:12 - Vital Signs Vital signs: Temp Pulse Resp BP Pulse Ox 99.2 F 83 16 142/91 H 98 04/27/18 00:46 04/27/18 00:46 04/27/18 00:46 04/27/18 00:46 04/27/18 00:46 - Laboratory Result Diagrams: 04/26/18 20:19 04/26/18 20:19 Laboratory results interpreted by me: 04/26/18 04/26/18 04/26/18 20:19 20:19 20:26 RDW 14.4 H PT 25.3 H Urine Protein 100 H Urine Blood LARGE H - Diagnostic Test Radiology reviewed: Image reviewed, Reports reviewed Discharge - Discharge Clinical Impression: Dizziness Abdominal pain Qualifiers: Abdominal location: generalized Qualified Code(s): R10.84 - Generalized abdominal pain Hypertension Qualifiers: Hypertension type: unspecified Qualified Code(s): I10 - Essential (primary) hypertension Hematuria Qualifiers: Hematuria type: unspecified type Qualified Code(s): R31.9 - Hematuria, unspecified Fever Qualifiers: Fever type: unspecified Qualified Code(s): R50.9 - Fever, unspecified Condition: Good Disposition: HOME, SELF-CARE Instructions: Abdominal Pain ([facility]), Flank Pain ([facility]), Hematuria ([facility]), Pain Medication Injection ([facility]), Vertigo ([facility]), Fever ([facility]) Additional Instructions: Your labs and imaging today were normal. Your urinalysis did show blood. After review of your previous urine samples obtained in the past this is not a new problem for you. Although Xarelto may make this worse at this time the benefit of stopping your Xarelto secondary to the clot that they found behind her eye last week outweighs the risks of continuation at this time. There is no evidence of blood in your stool. Please contact the doctor who prescribed the Xarelto to you and inform him that you were seen in the emergency department and have blood in your urine. Prescriptions: Meclizine HCl [Antivert 25 mg Tablet] 25 mg PO Q8H PRN #12 tablet PRN Reason: Dizziness Ondansetron [Zofran Odt 4 mg Tablet] 1 tab PO Q4H PRN #15 tab.rapdis PRN Reason: For Nausea/Vomiting Forms: Elevated Blood Pressure
[2018-04-26 20:47] LABS: ALANINE AMINOTRANSFERASE 32 U/L (9-52); ALBUMIN 4.4 g/dL (3.5-5.0); ALKALINE PHOSPHATASE 84 U/L (38-126); ANION GAP 13 (5-19); ASPARTATE AMINO TRANSFERASE 25 U/L (14-36); BILIRUBIN,DIRECT 0.3 mg/dL (0.0-0.4); BILIRUBIN,TOTAL 0.3 mg/dL (0.2-1.3); BLOOD UREA NITROGEN 13 mg/dL (7-20); CALCIUM 9.8 mg/dL (8.4-10.2); CARBON DIOXIDE 29 mmol/L (22-30); CHLORIDE 101 mmol/L (98-107); GLUCOSE 109 mg/dL (75-110); POTASSIUM 4.5 mmol/L (3.6-5.0); SODIUM 142.7 mmol/L (137-145); TOTAL PROTEIN 8.1 g/dL (6.3-8.2)
[2018-04-26 20:49] LABS: APPEARANCE,URINE CLOUDY; BILIRUBIN,URINE NEGATIVE (NEGATIVE); COLOR,URINE YELLOW; GLUCOSE, URINE NEGATIVE (NEGATIVE); KETONES,URINE NEGATIVE (NEGATIVE); LEUKOCYTE ESTERASE,URINE NEGATIVE (NEGATIVE); NITRITE,URINE NEGATIVE (NEGATIVE); PROTEIN,URINE 100 mg/dL (NEGATIVE); URINE SPECIFIC GRAVITY 1.016; UROBILINOGEN,URINE NEGATIVE mg/dL (<2.0)
--- NOTE | 2018-04-26 21:53 | RADIOLOGY REPORT (SQ) ---
EXAM DESCRIPTION: CT ABDOMEN PELVIS WITH IV CONTRAST COMPLETED DATE/TME: 04/26/2018 20:41 CLINICAL HISTORY: 57 years, Female, Right flank and right lower quadrant abdominal milo COMPARISON: EXAM DESCRIPTION: CLINICAL HISTORY: Right flank and right lower quadrant abdominal milo COMPARISON: None Available TECHNIQUE: Contiguous axial images of the abdomen and pelvis were obtained after the administration of intravenous contrast followed by reconstruction images.This exam was performed according to our departmental dose-optimization program, which includes automated exposure control, adjustment of the mA and/or kV according to patient size and/or use of iterative reconstruction technique. FINDINGS: Fat but no bowel extends through an anterior abdominal wall defect. There is slight prominence of the pancreatic duct. There is mild thickening of the wall of a few loops of small bowel in the left abdomen suggesting inflammation. Alternatively, this could be simply due to underdistention. There is no significant edema of the surrounding fat.. The liver, spleen, pancreas and kidneys are within normal limits. There is no hydronephrosis. The gallbladder is unremarkable. Adrenal glands are within normal limits. Aorta is normal in caliber and tapering. No significant free fluid. No free air. No bowel obstruction. There is no stranding of the mesenteric fat. The appendix appears normal. No evidence of periappendiceal inflammation. IMPRESSION: No definite acute intra-abdominal abnormality TECHNIQUE: Images stored on PACS. All CT scanners at this facility use dose modulation, iterative reconstruction, and/or weight based dosing when appropriate to reduce radiation dose to as low as reasonably achievable (ALARA). [facility]: Dose Right [facility]: CareDose [facility]: Dose Right [facility]: Teradose 4D [facility]: [employer] LIMITATIONS: None. FINDINGS: IMPRESSION: TECHNICAL DOCUMENTATION: Quality ID # 436: Final reports with documentation of one or more dose reduction techniques (e.g., Automated exposure control, adjustment of the mA and/or kV according to patient size, use of iterative reconstruction technique) 2010 [employer]- All Rights Reserved
[2018-04-26] MEDS ORDERED: MECLIZINE HCL 25 MG TABLET PO ONE (22:39)
[2018-04-27 00:57] VITALS: BP 142/91
== END 2018-04-27 01:06 | disposition home or self-care (01) ==
LOC: ER 18:48
DX: R42 Dizziness and giddiness (principal); R10.84 Generalized abdominal pain; R31.9 Hematuria, unspecified; R50.9 Fever, unspecified; I10 Essential (primary) hypertension; E11.9 Type 2 diabetes mellitus without complications; Z88.0 Allergy status to penicillin; Z79.02 Long term (current) use of antithrombotics/antiplatelets
CPT/HCPCS: 99284; 96361; 96374; 96375; 36415; 85025; 85610; 82272; 80053; 81001; 74177; J2270; J2405; J7040

== ENCOUNTER → 2019-12-02 | Outpatient (CLI) | payer BC ==
--- NOTE | 2019-12-02 12:10 | WOMENS IMAGING REPORT ---
EXAM DESCRIPTION: BILAT SCREENING MAMMO W/CAD IMAGES COMPLETED DATE/TIME: 12/02/2019 9:41 am REASON FOR STUDY: Z12.31 SCREENING MAMMO Z12.31 ENCNTR SCREEN MAMMOGRAM FOR MALIGNANT NEOPLASM OF B RE COMPARISON: 11/09/2013 and 10/24/2010 EXAM PARAMETERS: Standard craniocaudal and mediolateral oblique views of each breast recorded using digital acquisition. Read with the assistance of CAD. .[facility] - [employer] Version 9.2 LIMITATIONS: None. FINDINGS: No suspicious masses, suspicious calcifications or architectural distortion. No areas of c oncern. IMPRESSION: NEGATIVE MAMMOGRAM. BIRADS 1 BREAST DENSITY: b. There are scattered areas of fibroglandular density. BIRAD: ASSESSMENT: 1 NEGATIVE RECOMMENDATION: ROUTINE SCREENING COMMENT: The patient has been notified of the results by letter per MQSA requirements. Additional no tification policies are in place for contacting patient with suspicious or incomplete findings. Quality ID #225: The [employer] recommends an annual screening mammogram for women aged 40 years or over. This facility utilizes a reminder system to ensure that all patients receive reminder letters, and/or direct phone calls for appointments. This includes reminders for routine scr eening mammograms, diagnostic mammograms, or other Breast Imaging Interventions when appropriate. Th is patient will be placed in the appropriate reminder system. TECHNICAL DOCUMENTATION: FINDING NUMBER: (1) ASSESSMENT: (1) JOB ID: [id number] 2010 [employer]- All Rights Reserved Reading location - IP/workstation name: [email or web address]
== END ==
LOC: WI 09:00
PROVIDERS: ATTEND Internal Medicine
DX: Z12.31 Encounter for screening mammogram for malignant neoplasm of breast (principal)
CPT/HCPCS: 77067

== ENCOUNTER → 2020-02-23 | Outpatient (CLI) | payer BC ==
--- NOTE | 2020-02-23 14:18 | RADIOLOGY REPORT (SQ) ---
EXAM DESCRIPTION: ANKLE LEFT AP/LATERAL; FOOT LEFT 2 VIEWS IMAGES COMPLETED DATE/TIME: 02/23/2020 1:24 pm; 02/23/2020 1:25 pm REASON FOR STUDY: FALL (ON) (FROM) OTHER STAIRS AND STEPS, INITIAL ENCOUNTER W10.8XXA FALL (ON) (FR OM) OTHER STAIRS AND STEPS, INITIAL EN COMPARISON: None. NUMBER OF VIEWS: Five views. TECHNIQUE: AP, lateral and oblique radiographic images acquired of the left ankle and left foot. LIMITATIONS: None. FINDINGS: MINERALIZATION: Normal. BONES: No acute fracture or dislocation. No worrisome bone lesions. JOINTS: No effusions. SOFT TISSUES: Lateral swelling. No foreign body. OTHER: No other significant finding. IMPRESSION: No fracture. TECHNICAL DOCUMENTATION: JOB ID: [id number] 2010 [employer]- All Rights Reserved Reading location - IP/workstation name: [email or web address]
--- NOTE | 2020-02-23 14:18 | RADIOLOGY REPORT (SQ) ---
EXAM DESCRIPTION: ANKLE LEFT AP/LATERAL; FOOT LEFT 2 VIEWS IMAGES COMPLETED DATE/TIME: 02/23/2020 1:24 pm; 02/23/2020 1:25 pm REASON FOR STUDY: FALL (ON) (FROM) OTHER STAIRS AND STEPS, INITIAL ENCOUNTER W10.8XXA FALL (ON) (FR OM) OTHER STAIRS AND STEPS, INITIAL EN COMPARISON: None. NUMBER OF VIEWS: Five views. TECHNIQUE: AP, lateral and oblique radiographic images acquired of the left ankle and left foot. LIMITATIONS: None. FINDINGS: MINERALIZATION: Normal. BONES: No acute fracture or dislocation. No worrisome bone lesions. JOINTS: No effusions. SOFT TISSUES: Lateral swelling. No foreign body. OTHER: No other significant finding. IMPRESSION: No fracture. TECHNICAL DOCUMENTATION: JOB ID: [id number] 2010 [employer] All Rights Reserved Reading location - IP/workstation name: [email or web address]
--- NOTE | 2020-02-23 15:08 | RADIOLOGY REPORT (SQ) ---
EXAM DESCRIPTION: KNEE LEFT 2 VIEWS IMAGES COMPLETED DATE/TIME: 02/23/2020 1:24 pm REASON FOR STUDY: FALL (ON) (FROM) OTHER STAIRS AND STEPS, INITIAL ENCOUNTER W10.8XXA FALL (ON) (FR OM) OTHER STAIRS AND STEPS, INITIAL EN COMPARISON: None. NUMBER OF VIEWS: Two views. TECHNIQUE: AP and lateral radiographic images acquired of the left knee. LIMITATIONS: None. FINDINGS: MINERALIZATION: Normal. BONES: No acute fracture or dislocation. No worrisome bone lesions. No significant osteophytes. JOINT: No effusion. No chondrocalcinosis. OTHER: No other significant finding. IMPRESSION: NEGATIVE STUDY OF THE LEFT KNEE. NO EXPLANATION FOR PAIN. TECHNICAL DOCUMENTATION: JOB ID: [id number] 2010 [employer]- All Rights Reserved Reading location - IP/workstation name: [email or web address]
== END ==
LOC: OD 12:46
PROVIDERS: ATTEND Internal Medicine
DX: T14.90XA Injury, unspecified, initial encounter (principal); W10.8XXA Fall (on) (from) other stairs and steps, initial encounter; Y93.9 Activity, unspecified; Y92.9 Unspecified place or not applicable